=== PATIENT | male | born 1980 | race Caucasian/White ===

== ENCOUNTER 2018-09-16 11:25 | Emergency (ER) | payer MEDICAID ==
--- NOTE | 2018-09-16 11:44 | ER Document Report ---
ED Medical Screen (RME) - General Chief Complaint: Dizziness Stated Complaint: KNEE PAIN, BACK PAIN Time Seen by Provider: 09/16/18 11:38 Mode of Arrival: Ambulatory Information source: Patient TRAVEL OUTSIDE OF THE [place] IN LAST 30 DAYS: No - HPI Patient complains to provider of: sob; legs swelling Onset: Yesterday - pt states he has had dizziness, leg swelling, and SOBfor the past 2-3 days. [facility] CP - Related Data Allergies/Adverse Reactions: No Known Allergies Allergy (Verified 09/16/18 11:25) Past Medical History - Social History Chew tobacco use (# tins/day): No Frequency of alcohol use: None Drug Abuse: None Renal/ Medical History: Denies: Hx Peritoneal Dialysis Physical Exam - Vital signs Vitals: Temp Pulse Resp BP Pulse Ox 98.4 F 100 18 152/96 H 95 09/16/18 11:30 09/16/18 11:30 09/16/18 11:30 09/16/18 11:30 09/16/18 11:30 Course - Vital Signs Vital signs: Temp Pulse Resp BP Pulse Ox 98.4 F 100 18 152/96 H 95 09/16/18 11:30 09/16/18 11:30 09/16/18 11:30 09/16/18 11:30 09/16/18 11:30 Doctor's Discharge - Discharge Referrals: PUMA LUQUE MD [Primary Care Provider] - Follow up as needed
[2018-09-16 12:31] LABS: ABSOLUTE BASOPHILS # (AUTO) 0.1 10^3/uL (0.0-0.2); ABSOLUTE EOSINOPHILS # (AUTO) 0.7 10^3/uL (0.0-0.6); ABSOLUTE LYMPHOCYTES (AUTO) 2.9 10^3/uL (0.5-4.7); ABSOLUTE MONOCYTES (AUTO) 0.8 10^3/uL (0.1-1.4); ABSOLUTE NEUT (AUTO) 5.6 10^3/uL (1.7-8.2); EOSINOPHILS % (AUTO) 7.1 % (0-6); HEMATOCRIT 43.5 % (37.9-51.0); HEMOGLOBIN 14.9 g/dL (13.5-17.0); LYMPHOCYTES % (AUTO) 28.8 % (13-45); MEAN CORPUSCULAR HEMOGLOBIN 30.7 pg (27.0-33.4); MEAN CORPUSCULAR HGB CONC 34.3 g/dL (32.0-36.0); MEAN CORPUSCULAR VOLUME 89 fl (80-97); MONOCYTES % (AUTO) 8.2 % (3-13); PLATELET COUNT 283 10^3/uL (150-450); RED BLOOD COUNT 4.86 10^6/uL (4.35-5.55); RED CELL DISTRIBUTION WIDTH 13.3 % (11.5-14.0); SEGMENTED NEUTROPHILS % (AUTO) 54.9 % (42-78); TOTAL CELLS COUNTED % (AUTO) 100 %; WHITE BLOOD COUNT 10.2 10^3/uL (4.0-10.5)
[2018-09-16 12:34] LABS: APPEARANCE,URINE CLEAR; BILIRUBIN,URINE NEGATIVE (NEGATIVE); COLOR,URINE YELLOW; GLUCOSE, URINE NEGATIVE (NEGATIVE); KETONES,URINE NEGATIVE (NEGATIVE); LEUKOCYTE ESTERASE,URINE NEGATIVE (NEGATIVE); NITRITE,URINE NEGATIVE (NEGATIVE); PROTEIN,URINE NEGATIVE (NEGATIVE); URINE SPECIFIC GRAVITY 1.023; UROBILINOGEN,URINE NEGATIVE mg/dL (<2.0)
--- NOTE | 2018-09-16 12:49 | RADIOLOGY REPORT (SQ) ---
EXAM DESCRIPTION: CHEST 2 VIEWS COMPLETED DATE/TIME: 09/16/2018 12:36 pm REASON FOR STUDY: sob COMPARISON: None. TECHNIQUE: Frontal and lateral radiographic views of the chest acquired. NUMBER OF VIEWS: Two view. LIMITATIONS: None. FINDINGS: LUNGS AND PLEURA: No opacities, masses or pneumothorax. No pleural effusion. MEDIASTINUM AND HILAR STRUCTURES: No masses or contour abnormalities. HEART AND VASCULAR STRUCTURES: Heart normal size. No evidence for failure. BONES: No acute findings. HARDWARE: None in the chest. OTHER: No other significant finding. IMPRESSION: NO SIGNIFICANT RADIOGRAPHIC FINDING IN THE CHEST. TECHNICAL DOCUMENTATION: JOB ID: [id number] [employer]- All Rights Reserved Reading location - IP/workstation name: [email or web address]
[2018-09-16 12:50] LABS: ALANINE AMINOTRANSFERASE 46 U/L (21-72); ALKALINE PHOSPHATASE 90 U/L (38-126); ANION GAP 9 (5-19); ASPARTATE AMINO TRANSFERASE 25 U/L (17-59); BILIRUBIN,DIRECT 0.2 mg/dL (0.0-0.4); BILIRUBIN,TOTAL 0.6 mg/dL (0.2-1.3); BLOOD UREA NITROGEN 14 mg/dL (7-20); CALCIUM 9.1 mg/dL (8.4-10.2); CARBON DIOXIDE 28 mmol/L (22-30); CHLORIDE 102 mmol/L (98-107); GLUCOSE 185 mg/dL (75-110); POTASSIUM 4.4 mmol/L (3.6-5.0); SODIUM 138.9 mmol/L (137-145); TOTAL PROTEIN 6.8 g/dL (6.3-8.2)
--- NOTE | 2018-09-16 13:15 | ER Document Report ---
ED General - General Chief Complaint: Dizziness Stated Complaint: KNEE PAIN, BACK PAIN Time Seen by Provider: 09/16/18 11:38 Mode of Arrival: Ambulatory Information source: Patient Notes: 38-year-old male who is a very poor historian, who states he has the past medical history in this past January of having a "tumor" found in his right lung causing shortness of breath. Patient states he went to and was seen and evaluated at [facility] and they did a partial resection of the tumor but "could not remove it all". He was not given any chemotherapy or radiation. Patient states he has a repeat appointment in June to see if he requires more resection. He states he did not cut his chest or abdomen for those resection but "went down my throat". I am assuming that this was by bronchoscopy. Patient initially states he is not sure what the tumor was. 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 Patient states for the last 2 weeks he "has not felt good". Patient states that he has been more tired than normal. He has had some mild shortness of breath. He also states he has had some swelling to the lower extremities and some left knee pain and back pain. He denies any trauma. Patient denies any weakness or numbness of the legs. He denies any incontinence. He denies any runny nose, congestion, cough, or fevers. He denies any and all chest pain. Patient states with the previous lung cancer pathology he also had this lower extremity swelling. Patient also talks on the chief complaint in the front of "passing out". When I asked him what he means by that he goes on to tell me a story that at times during the last 3 weeks when he is driving a car his eyes get "very sleepy" and he needs to pull off to the side of the road and "shake my head to wake up". He states this only happens when he is driving. He denies again any chest pain , palpitations, or other episodes of syncope or falling to the ground. TRAVEL OUTSIDE OF THE [place] IN LAST 30 DAYS: No - HPI Onset: Other - See above Onset/Duration: Gradual Quality of pain: Achy Severity: Mild Pain Level: 1 Associated symptoms: Other - See above Exacerbated by: Denies Relieved by: Denies Similar symptoms previously: Yes Recently seen / treated by doctor: No - Related Data Allergies/Adverse Reactions: No Known Allergies Allergy (Verified 09/16/18 11:41) Past Medical History - General Information source: Patient - Social History Smoking Status: Current Every Day Smoker Chew tobacco use (# tins/day): No Frequency of alcohol use: None Drug Abuse: None Family History: Reviewed & Not Pertinent Patient has suicidal ideation: No Patient has homicidal ideation: No Renal/ Medical History: Denies: Hx Peritoneal Dialysis Past Surgical History: Reports: Hx Appendectomy, Hx Tonsillectomy Review of Systems - Review of Systems Constitutional: denies: Fever EENT: denies: Eye discharge, Nose discharge Cardiovascular: denies: Chest pain, Palpitations, Heart racing, Dizziness, Lightheaded Respiratory: Short of breath. denies: Cough, Hurts to breathe, Hemoptysis Gastrointestinal: denies: Vomiting Genitourinary: denies: Dysuria Musculoskeletal: Leg swelling Skin: Other - no hives. denies: Rash Neurological/Psychological: Other - no slurred speech -: Yes All other systems reviewed and negative Physical Exam - Vital signs Vitals: Temp Pulse Resp BP Pulse Ox 98.4 F 100 18 152/96 H 95 09/16/18 11:30 09/16/18 11:30 09/16/18 11:30 09/16/18 11:30 09/16/18 11:30 Notes: Reviewed vital signs and nursing note as charted by RN. CONSTITUTIONAL: Alert and oriented and responds appropriately to questions. Well -appearing; well-nourished HEAD: Normocephalic; atraumatic EYES: PERRL; Conjunctivae clear, sclerae non-icteric ENT: Normal nose; no rhinorrhea; moist mucous membranes; pharynx without lesions noted NECK: Supple without meningismus; non-tender; no cervical lymphadenopathy, no masses CARD: Regular rate and rhythm; no murmurs; symmetric distal pulses RESP: Normal chest excursion without splinting or tachypnea; breath sounds clear and equal bilaterally; no wheezes, no rhonchi, no rales ABD/GI: Normal bowel sounds; non-distended; soft, non-tender; no palpable organomegaly or masses BACK: The back appears normal and is non-tender to palpation with no midline swelling, step-offs, erythema, or induration EXT: Normal ROM in all joints; non-tender to palpation to all 4 extremities including the left knee with no surrounding erythema or induration; 2+ edema to bilateral shins SKIN: No acute lesions noted NEURO: CN 2-12 intact; 5/5 bilateral upper and lower extremity strength with sensation intact to light touch; 2+ patellar bilateral reflexes PSYCH: The patient's mood and manner are appropriate. Grooming and personal hygiene are appropriate. Course - Re-evaluation Re-evalutation: Given the history and physical examination we will order basic labs, troponin, EKG, initially an x-ray of the chest, a BNP, coagulation profile, and reassess. Patient has had no fevers. Vital signs as recorded. Patient has no weakness or numbness to the lower extremities. Normal 2+ patellar reflexes. No back swelling, erythema, or induration. I do believe epidural abscess, discitis, or other pathology causing possible cord compression to be extremely unlikely. Patient has had no recent sore throat or viral type illness to suggest the possibility of poststreptococcal glomerulonephritis to explain the patient's edema. 09/16/18 13:10 Basic labs, liver panel and albumin level, and urine analysis as recorded. Chest x-ray shows normal heart, normal mediastinum, no fractures, normal lung ya, no pneumothorax. I will proceed with a CTA of the chest to evaluate for the possibility of pulmonary embolism or other cancerous lung pathology as detailed above. 09/16/18 13:17 EKG shows a heart rate of 96, normal sinus rhythm, normal axis, no ST elevation or depression. Labs as recorded. Normal troponin. Normal BNP. No obvious pathology on the x- ray of the chest. We will proceed with a CTA of the chest. 09/16/18 14:49 Patient states that he cannot wait to have the CTA of the chest performed. I have had a long talk with the patient regarding the possible seriousness of his condition including permanent disability and . He understands this but states that he has to go home and take care of his kids. I have attempted multiple strategies to have the patient stay. I have been unsuccessful. I have encouraged the patient to return at any time that he would like for a CTA of the chest, with further evaluation. Patient states he will sign AMA. - Vital Signs Vital signs: Temp Pulse Resp BP Pulse Ox 98.4 F 100 12 157/88 H 96 09/16/18 11:30 09/16/18 11:30 09/16/18 13:22 09/16/18 13:22 09/16/18 13:22 - Laboratory Result Diagrams: 09/16/18 11:50 09/16/18 11:50 Laboratory results interpreted by me: 09/16/18 09/16/18 11:50 11:50 Eosinophils % 7.1 H Absolute Eosinophils 0.7 H Glucose 185 H Discharge - Discharge Clinical Impression: Swelling of extremity, SOB (shortness of breath), Lesion of lung Condition: Serious Disposition: AGAINST MEDICAL ADVICE Additional Instructions: Please return at any time for further assessment and treatment as we would like to decide and investigate further your lung and the reason for your edema. Please make sure that you follow-up with whatever primary care you have or through the [facility]. Come back immediately with any new or worsening of symptoms. Referrals: PUMA LUQUE MD [ACTIVE STAFF] - Follow up as needed
[2018-09-16 13:26] LABS: INTERNATIONAL RATION (INR) 0.91; PROTHROMBIN TIME 12.7 SEC (11.4-15.4)
[2018-09-16 13:56] VITALS: BP 157/88
[2018-09-16 14:34] LABS: NT PRO BNP < 11 pg/mL (<125); TROPONIN I < 0.012 ng/mL
--- NOTE | 2018-09-18 00:55 | EKG REPORT ---
SEVERITY:- NORMAL ECG - SINUS RHYTHM : Confirmed by: Harika Kinney MD 18-Sep-2018 00:54:31
== END 2018-09-16 14:52 | disposition left against medical advice (07) ==
LOC: ER 11:25
DX: R06.02 Shortness of breath (principal); J98.4 Other disorders of lung; R42 Dizziness and giddiness; M79.89 Other specified soft tissue disorders; M54.9 Dorsalgia, unspecified; F17.200 Nicotine dependence, unspecified, uncomplicated
CPT/HCPCS: 36415; 71046; 80053; 81001; 83880; 84484; 85025; 85610; 93005; 93010; 99284

== ENCOUNTER 2019-01-11 19:49 | Emergency (ER) | payer MEDICAID ==
[2019-01-11 20:24] VITALS: BP 170/92
[2019-01-11] MEDS ORDERED: NEOMY SULF/POLYMYX B SULF/HC OTIC SUSP 10 ML AD ONE (21:07)
[2019-01-11] MEDS ORDERED: IBUPROFEN 800 MG TABLET PO ONE (21:09)
--- NOTE | 2019-01-11 21:11 | ER Document Report ---
HPI - HPI Patient complains to provider of: Right ear pain Time Seen by Provider: 01/11/19 21:07 Onset: This morning Onset/Duration: Gradual Quality of pain: Achy, Throbbing Pain Level: 1 Context: Patient presents complaining of right ear pain that started today. Patient states pain is severe causing him to develop blurred vision that has since returned to normal. Patient states that he has had episodes of swimmer's ear in the past and suspects the same today. Patient denies any cough, nausea or vomiting. Associated Symptoms: Earache. denies: Nonproductive cough, Fever Exacerbated by: Denies Relieved by: Denies Similar symptoms previously: Yes Recently seen / treated by doctor: No - ROS ROS below otherwise negative: Yes Systems Reviewed and Negative: Yes All other systems reviewed and negative - CONSTITUTIONAL Constitutional: DENIES: Fever, Chills - EENT EENT: REPORTS: Ear Pain - NEURO Neurology: REPORTS: Vision blurred. DENIES: Headache Notes: Patient reports episode of blurred vision that is since returned to normal. Patient states the vision change were due to the amount of pain he was having from his right ear. - RESPIRATORY Respiratory: DENIES: Coughing - GASTROINTESTINAL Gastrointestinal: DENIES: Nausea, Patient vomiting - REPRODUCTIVE Reproductive: DENIES: : - MUSCULOSKELETAL Musculoskeletal: DENIES: Back Pain, Neck Pain - DERM Skin Color: Normal Skin Problems: None Past Medical History - General Information source: Patient - Social History Smoking Status: Current Every Day Smoker Smoking Education Provided: Yes Frequency of alcohol use: None Drug Abuse: None Occupation: [employer] Family History: Reviewed & Not Pertinent - Medical History Medical History: Negative Renal/ Medical History: Denies: Hx Peritoneal Dialysis Past Surgical History: Reports: Hx Appendectomy, Hx Tonsillectomy Vertical Provider Document - CONSTITUTIONAL Agree With Documented VS: Yes Exam Limitations: No Limitations General Appearance: WD/WN, No Apparent Distress - INFECTION CONTROL TRAVEL OUTSIDE OF THE [place] IN LAST 30 DAYS: No - HEENT HEENT: Atraumatic, Normocephalic. negative: Pharyngeal Exudate, Pharyngeal Tenderness, Pharyngeal Erythema, Tympanic Membrane Red, Tympanic Membrane Bulging Notes: Swelling to right external auditory canal, no mastoid tenderness or swelling. Pain with movement of right helix. - NECK Neck: Normal Inspection, Supple. negative: Lymphadenopathy-Left, Lymphadenopathy-Right - RESPIRATORY Respiratory: Breath Sounds Normal, No Respiratory Distress - CARDIOVASCULAR Cardiovascular: Regular Rate, Regular Rhythm - BACK Back: Normal Inspection - MUSCULOSKELETAL/EXTREMETIES Musculoskeletal/Extremeties: MAEW - NEURO Level of Consciousness: Awake, Alert, Appropriate Motor/Sensory: No Motor Deficit - DERM Integumentary: Warm, Dry, No Rash Course - Re-evaluation Re-evalutation: 01/11/19 21:08 Patient with tenderness to right helix. Patient with swelling to right external auditory canal. No concern for mastoiditis. 01/11/19 21:19 Patient is refusing to perform visual acuity examination. Patient states that he just wants something for his ear infection and pain medicine at this time and wants to leave. Patient is currently taking Suboxone for previous narcotic addiction. Patient given a nonnarcotic medication while here in the ER. - Vital Signs Vital signs: Temp Pulse Resp BP Pulse Ox 99.1 F 95 24 H 170/92 H 97 01/11/19 20:24 01/11/19 20:24 01/11/19 20:24 01/11/19 20:24 01/11/19 20:24 Discharge - Discharge Clinical Impression: Otitis externa Qualifiers: Otitis externa type: unspecified type Chronicity: acute Laterality: right Qualified Code(s): H60.501 - Unspecified acute noninfective otitis externa, right ear Condition: Stable Disposition: HOME, SELF-CARE Instructions: Use of Ear Drops ([facility]), Otitis Externa ([facility]) Additional Instructions: Return immediately for any new or worsening symptoms Followup with your primary care provider, call tomorrow to make a followup appointment Instill Cortisporin otic drops, place 4 drops to right ear canal 4 times a day for the next 7 days. Prescriptions: Naproxen [Naprosyn 250 Nmg Tablet] 1 tab PO BID #14 tablet Forms: Return to Work Referrals: [facility] [Provider Group] - Follow up as needed
== END 2019-01-11 21:29 | disposition home or self-care (01) ==
LOC: ER 19:49
DX: H60.501 Unspecified acute noninfective otitis externa, right ear (principal); H92.01 Otalgia, right ear; H53.8 Other visual disturbances; F17.200 Nicotine dependence, unspecified, uncomplicated
CPT/HCPCS: 99282; J3490 ×2